=== PATIENT | male | born 1975 | race Caucasian/White ===

== ENCOUNTER 2022-03-19 21:54 | Emergency (ER) | payer MEDICAID ==
[~2022-03-19] VITALS: Ht 177.8 cm; Wt 75.0 kg
[~2022-03-19 21:54] MED LIST: CHLO25CA10 PO; CLON0.1T PO; LORA-269 PO; MULT-25 PO; PANT40TA54 PO; THIA50TA10 PO; ZINC57OI3 TOP
--- NOTE | 2022-03-19 22:15 | NUR ---
PT IS BECOMING MORE ALERT. PT IS ABLE TO TELL NURSE AND LAST NAME. PT DOES NOT REMEMBER WHAT HAPPENED OR HOW MUCH HE DRANK. PT IS RECEIVING LITER OF NS THAT WAS STARTED BY EMS
[2022-03-19 22:38] LABS: BASOPHILS % (AUTO) 0.4 % (0-1); HEMOGLOBIN 12.8 g/dl (14.0-17.9); LYMPHOCYTES # (AUTO) 1.3 X10'3 (1.1-4.8); LYMPHOCYTES % (AUTO) 28.8 % (21-51); MEAN CORPUSCULAR HGB CONC 34.6 g/dL (33.0-36.5); MEAN CORPUSCULAR VOLUME 98.4 FL (78-98); MEAN PLATELET VOLUME 6.9 FL (7.4-10.4); MONOCYTES # (AUTO) 0.4 X10'3 (0-0.9); MONOCYTES % (AUTO) 8.5 % (2-12); NEUTROPHILS # (AUTO) 2.8 X10'3 (1.8-7.7); NEUTROPHILS % (AUTO) 61.3 % (42-75); PLATELET COUNT 161 X10'3 (140-440); RED BLOOD COUNT 3.76 X10'6 (4.70-6.10); RED CELL DISTRIBUTION WIDTH 13.9 % (11.5-14.5); WHITE BLOOD COUNT 4.5 X10'3 (4.5-11.0)
--- NOTE | 2022-03-19 22:47 | NUR ---
PT TO CT
[2022-03-19 22:55] LABS: ALANINE AMINOTRANSFERASE 44 U/L (12-78); ALBUMIN 3.4 G/DL (3.4-5.0); ALBUMIN/GLOBULIN RATIO 1.1 (1.1-1.5); ALKALINE PHOSPHATASE 49 IU/L (46-116); ANION GAP 8 (8-16); ASPARTATE AMINO TRANSFERASE 46 U/L (10-37); BILIRUBIN,TOTAL 0.4 MG/DL (0.1-1.0); BLOOD UREA NITROGEN 11 MG/DL (7-18); BUN/CREATININE RATIO 16.2 (5.4-32.0); CALCIUM 7.3 MG/DL (8.5-10.1); CHLORIDE 109 MMOL/L (99-107); CREATININE 0.68 MG/DL (0.60-1.10); GLUCOSE 101 MG/DL (70-104); POTASSIUM 3.6 MMOL/L (3.5-5.1); SODIUM 148 MMOL/L (135-145); TOTAL CARBON DIOXIDE 31.5 MMOL/L (24-32); TOTAL PROTEIN 6.5 G/DL (6.4-8.2); eGFR > 90 ML/MIN
--- NOTE | 2022-03-19 23:01 | NUR ---
PT BACK FROM CT
[2022-03-19 23:06] LABS: ETHANOL 0.451 GM/DL (0.0-0.010)
[2022-03-19] MEDS ORDERED: normal saline 1000ml 1,000 ML IV ONE (23:25)
--- NOTE | 2022-03-20 01:13 | NUR ---
PT IS SNORING WHILE SLEEPING. O2 SAT DROPPED TO 86%, RN STARTED O2 VIA NC 2L
--- NOTE | 2022-03-20 02:38 | NUR ---
Pt is compliant when this RN goes into room to adjust BP cuff or O2 sat finger monitor. Pt is very lethargic but arouses to name and follows directions
--- NOTE | 2022-03-20 05:01 | NUR ---
PT IS MORE ALERT AND DENIES ANY PAIN OR NEEDS AT THIS TIME.
[2022-03-20 05:59] VITALS: BP 124/78
[2022-03-20 07:51] LABS: MAGNESIUM 1.8 MG/DL (1.5-2.4)
== END 2022-03-20 09:09 | disposition left against medical advice (07) ==
LOC: ER 21:55 → EDBD 21:55 → ER 03-20 09:09
DX: F10.129 Alcohol abuse with intoxication, unspecified (principal); Y90.9 Presence of alcohol in blood, level not specified
CPT/HCPCS: 36415; 70450; 80053; 80320; 82140; 83735; 85025; 99285; J7030; A4615